=== PATIENT | female | born 1970 | race Caucasian/White ===

== ENCOUNTER 2020-07-21 08:06 | Outpatient (CLI) | payer OTHER, SELFPAY ==
--- NOTE | ~2020-07-21 | MM_ITS ---
EXAMINATION: MM screening [facility] BI w sandy HISTORY: Screening TECHNIQUE: Craniocaudal and mediolateral oblique 3-D tomosynthesis images were obtained and synthetic 2-D images were generated. CAD analysis was submitted and interpreted. COMPARISON: Comparison to multiple prior studies sequentially, with oldest reviewed study dated 06/19. BREAST PARENCHYMAL COMPOSITION: The breasts are heterogenously dense, which may obscure small masses. FINDINGS: There is no evidence of suspicious mass, calcification, or architectural distortion to sugg est malignancy in either breast. There has been no suspicious interval change. IMPRESSION: 1. No mammographic evidence of malignancy. 2. Recommend routine screening mammography in one year. BI-RADS Category 1: Negative Reviewed, dictated and finalized at location A. CEWOMAN
== END 2020-07-21 08:07 | disposition home or self-care (01) ==
LOC: CHSIMG 08:07
PROVIDERS: PCP Internal Medicine; Visit Provider Obstetrics & Gynecology
DX: Z12.31 Encounter for screening mammogram for malignant neoplasm of breast (principal)
CPT/HCPCS: 77063; 77067

== ENCOUNTER 2021-05-10 10:29 | Outpatient (CLI) | payer OTHER, SELFPAY ==
--- NOTE | ~2021-05-10 | US_ITS ---
EXAMINATION: US soft tissue head and neck EXAM DATE: 05/10/2021 10:56 INDICATION: HX of malignant neoplasm of thyroid. TECHNIQUE: Multiple grayscale and Doppler images of the thyroid were obtained (by a technologist who performed the scan) and subsequently reviewed. Individual nodules and recommendations may be reporte d in accordance with TI-RADS system as designated by the 2017 ACR White Paper TI-RADS committee. The re is no prior study for comparison. FINDINGS: Right-sided thyroidectomy bed is unremarkable. Several small internal jugular chain lymph nodes bilat erally. Along the left side of the neck, lateral to the internal jugular vein and thyroidectomy bed there is region of tissue measuring about 9 x 6 x 10 mm, nonspecific. No evidence of internal vascularity. Thi s could be a lipoma but other histology not excludable. IMPRESSION: Small focal appearing region of nonspecific soft tissue, could be lipoma. Less likely lym ph node or other mass. Recommend neck CT with contrast. Reviewed, dictated and finalized at location A. IMPRESSION: Small focal appearing region of nonspecific soft tissue, could be l ipoma. Less likely lymph node or other mass. Recommend neck CT with contrast.
== END 2021-05-10 10:30 | disposition home or self-care (01) ==
PROVIDERS: PCP Internal Medicine; Visit Provider Internal Medicine Endocrinology, Diabetes & Metabolism
DX: Z85.850 Personal history of malignant neoplasm of thyroid (principal)
CPT/HCPCS: 76536

== ENCOUNTER → 2021-07-07 08:27 | Outpatient (CLI) | payer OTHER, SELFPAY ==
--- NOTE | ~2021-07-07 | CT_ITS ---
EXAMINATION: CT soft tissue neck w con DATE: 07/07/2021 09:00 INDICATION: Neck mass. TECHNIQUE: Computed tomography (CT) of the neck was performed with 75 mL Omnipaque-350 intravenous co ntrast. Automated exposure control and iterative reconstruction technique were employed. The dose-genoveva gth product was 385.79 mGy-cm. COMPARISON: Ultrasound 05/10/2021 FINDINGS: There are changes of thyroidectomy. There are no pathologically enlarged lymph nodes. There is no visible plaque in the proximal internal carotid arteries. There is moderate cervical spondylos is. IMPRESSION: 1. No abnormal neck mass or lymphadenopathy. Reviewed, dictated and finalized at location A.
[2021-07-07 08:47] LABS: Estimated Glomerular Filt Rate 59
== END ==
PROVIDERS: PCP Internal Medicine; Visit Provider Internal Medicine Endocrinology, Diabetes & Metabolism
DX: R22.1 Localized swelling, mass and lump, neck (principal); Z85.850 Personal history of malignant neoplasm of thyroid
CPT/HCPCS: 70491; Q9967

== ENCOUNTER 2021-07-23 08:02 | Outpatient (CLI) | payer OTHER, SELFPAY ==
--- NOTE | ~2021-07-23 | MM_ITS ---
EXAMINATION: MM screening [facility] BI w sandy HISTORY: Screening TECHNIQUE: Craniocaudal and mediolateral oblique 3-D tomosynthesis images were obtained and synthetic 2-D images were generated. CAD analysis was submitted and interpreted. COMPARISON: Comparison to multiple prior studies sequentially, with oldest reviewed study dated 10/16. BREAST PARENCHYMAL COMPOSITION: There are scattered areas of fibroglandular density. FINDINGS: There is no evidence of suspicious mass, calcification, or architectural distortion to sugg est malignancy in either breast. There has been no suspicious interval change. IMPRESSION: 1. No mammographic evidence of malignancy. 2. Recommend routine screening mammography in one year. BI-RADS Category 1: Negative Reviewed, dictated and finalized at location A.
== END 2021-07-23 08:03 | disposition home or self-care (01) ==
LOC: CHSIMG 08:04
PROVIDERS: PCP Internal Medicine; Visit Provider Obstetrics & Gynecology Gynecology
DX: Z12.31 Encounter for screening mammogram for malignant neoplasm of breast (principal)
CPT/HCPCS: 77063; 77067

== ENCOUNTER 2021-08-20 13:00 | Outpatient (CLI) | payer OTHER, SELFPAY ==
[2021-08-20 13:52] LABS: SARS-CoV-2 RNA PCR Negative (Negative)
== END 2021-08-20 13:01 | disposition home or self-care (01) ==
LOC: CHSLAB 13:03
PROVIDERS: PCP Internal Medicine; Visit Provider Internal Medicine
DX: Z20.822 Contact with and (suspected) exposure to COVID-19 (principal)
CPT/HCPCS: C9803; U0003; U0005

== ENCOUNTER 2022-03-07 03:02 | Day surgery (SDC) | payer OTHER, SELFPAY ==
[2022-02-17 11:25] VITALS: BMI 34.4
--- NOTE | 2022-03-07 06:37 | WPDANESEPPF ---
Anes - Initial Pre Proc Eval Procedure: Operation Date: 03/07/22 08:30 Proposed Procedures p Screening Colonoscopy - Shailesh Salinas MD Date/Time: 03/07/22 06:37 Surgeon: Shailesh Salinas MD Pre Op Diagnosis: neoplasm screening Patient Data Age: 51 Gender: F Height: 1.63 m Weight: 90.9 kg Allergies Allergy/AdvReac Type Severity Reaction Status Date / Time No Known Allergies Allergy Mild Verified 03/07/22 07:50 Home Medications Medication Instructions Recorded Confirmed Type atenolol 100 mg tablet 100 mg PO DAILY 01/31/20 02/17/22 History blood-glucose meter (OneTouch #1 ea 02/04/20 11/03/21 Rx Verio Meter) irbesartan 150 mg tablet 150 mg PO DAILY 08/10/20 02/17/22 History lancets 33 gauge (OneTouch Delica #200 ea 09/15/20 11/03/21 Rx Lancets) blood sugar diagnostic (OneTouch #100 ea 05/11/21 11/03/21 Rx Verio test strips) levothyroxine 200 mcg tablet 200 mcg PO QAM 90 days #90 tabs 11/03/21 02/17/22 Rx (Synthroid) semaglutide 1 mg/dose (4 mg/3 mL) 1 mg (0.75 mL) subcut WEEKLY 90 01/13/22 02/17/22 Rx subcutaneous pen injector (Ozempic) days #9 mL atorvastatin 10 mg tablet See Rx Instructions .Route 03/07/22 Rx .COMPLEX #90 tabs Patient hx anesthesia problems: none Family hx anesthesia problems: none Results Review: All pre-operative results and documents have been reviewed as part of the pre-operative evaluation. [facility] Past Medical History Medical History (Updated 03/07/22 @ 08:18 by Shailesh Salinas MD) Anemia BMI greater than 30 Cancer Colon cancer screening High blood pressure Hypothyroidism, acquired Type 2 diabetes mellitus with hyperglycemia, without long-term current use of insulin Family History Family History Other Diabetes mellitus Family history of congestive heart failure Family history of glaucoma Family history of hearing loss Family history of malignant neoplasm Family history of osteoporosis Social History Social History Smoking status: Never smoker Alcohol intake: current Living arrangements: with family Spiritual care concerns: No Anes - Eval Final PreProcedure Day of Procedure 03/07/22 06:37 Patient weight: obese Heart: regular rate and rhythm Lungs: clear to auscultation Airway: Mallampati scale class II Neurological: alert and oriented Last oral intake: >/= 8 hours ASA classification: III Emergent: no Anesthetic plan: proceed Anesthesia type and monitoring: general GIVS and standard monitoring Results Review: All pre-operative results and documents have been reviewed as part of the pre-operative evaluation. Informed Consent: The patient's anesthetic plan and its attendant risks and benefits were discussed with the patient/family/POA. Questions were solicited and answers provided to the satisfaction of the patient/family/POA.
[2022-03-07 07:52] VITALS: BP 112/76; PULSE 84; RESP 18; TEMP 36.3; O2SAT 100
[2022-03-07] MEDS: LACTATED RINGERS 1,000 ML 150 ML IV CONT (08:07)
[2022-03-07 08:08] LABS: Glucose Point of Care 121 mg/dl (65-105)
--- NOTE | 2022-03-07 08:18 | PM.HPGS ---
History of Present Illness History of Present Illness Consent: Risks, benefits, and alternatives have been discussed and questions answered. Patient agrees to proceed with procedure. Chief complaint: neoplasm screening Narrative: Ave Higuera is a 51 year old female here for first screening colonoscopy Review of Systems Constitutional: Constitutional: Denies headache(s) and Denies weakness Eyes: Eyes: Denies blurry vision ENT: Reports Normal hearing present, Denies headache(s) and Denies neck pain Cardiovascular: Cardiovascular: Denies chest pain and Denies dyspnea Respiratory: Respiratory: Denies dyspnea Gastrointestinal: Gastrointestinal: Reports no additional gastrointestinal complaints Genitourinary: Genitourinary: Denies dysuria Musculoskeletal: Musculoskeletal: Denies neck pain Integumentary/Breasts: Skin/Breast: Denies dry skin Neurologic: Reports Normal hearing present, Denies headache(s) and Denies weakness Psychiatric: Psychiatric: Denies anxiety Endocrine: Endocrine: Denies change in body appearance Hematologic/Lymphatic: Hematologic/Lymphatic: Denies easy bleeding Allergic/Immunologic: Allergic/Immunologic: Denies urticaria PMFSH Past Medical History Medical History (Updated 03/07/22 @ 08:18 by Shailesh Salinas MD) Anemia BMI greater than 30 Cancer Colon cancer screening High blood pressure Hypothyroidism, acquired Type 2 diabetes mellitus with hyperglycemia, without long-term current use of insulin Family History Family History Other Diabetes mellitus Family history of congestive heart failure Family history of glaucoma Family history of hearing loss Family history of malignant neoplasm Family history of osteoporosis Social History Social History Smoking status: Never smoker Alcohol intake: current Living arrangements: with family Spiritual care concerns: No Meds Home Medications and Allergies Home Medications Medication Instructions Recorded Confirmed Type atenolol 100 mg tablet 100 mg PO DAILY 01/31/20 02/17/22 History blood-glucose meter (OneTouch #1 ea 02/04/20 11/03/21 Rx Verio Meter) irbesartan 150 mg tablet 150 mg PO DAILY 08/10/20 02/17/22 History lancets 33 gauge (OneTouch Delica #200 ea 09/15/20 11/03/21 Rx Lancets) blood sugar diagnostic (OneTouch #100 ea 05/11/21 11/03/21 Rx Verio test strips) levothyroxine 200 mcg tablet 200 mcg PO QAM 90 days #90 tabs 11/03/21 02/17/22 Rx (Synthroid) semaglutide 1 mg/dose (4 mg/3 mL) 1 mg (0.75 mL) subcut WEEKLY 90 01/13/22 02/17/22 Rx subcutaneous pen injector (Ozempic) days #9 mL atorvastatin 10 mg tablet See Rx Instructions .Route 03/07/22 Rx .COMPLEX #90 tabs Allergies Allergy/AdvReac Type Severity Reaction Status Date / Time No Known Allergies Allergy Mild Verified 03/07/22 07:50 Vital Signs Vital Signs - 24 hr 03/07/22 07:52 Temperature 97.4 F L Pulse Rate 84 Respiratory Rate 18 Blood Pressure 112/76 Pulse Oximetry 100 Oxygen Delivery Room Air Exam Const: General: comfortable and no acute distress HENMT: General nose exam: Normal nares present Eyes: General: appearance normal, both eyes and all related structures Neck: Neck: no JVD Resp: Auscultation: clear to auscultation bilaterally Cardio: Rate: regular rate Rhythm: regular rhythm GI: Inspection: non-distended GI Palp: Yes Soft to palpation Skin: General skin exam: normal color Neuro: General: gait normal Speech: normal speech Extrem: General: normal to inspection Psych: Mental Status: mental status grossly normal Assessment and Plan Assessment and plan (1) Colon cancer screening: Code(s): Z12.11 - Encounter for screening for malignant neoplasm of colon Status: Acute Assessment and Plan: colonoscopy
[2022-03-07 08:43] VITALS: BP 94/56; PULSE 84; RESP 20; O2SAT 99
[2022-03-07 08:53] VITALS: BP 100/53; PULSE 86; RESP 20; O2SAT 100
[2022-03-07 09:03] VITALS: BP 126/67; PULSE 82; RESP 20; O2SAT 100
== END 2022-03-07 09:23 | disposition home or self-care (01) ==
PROVIDERS: PCP Internal Medicine; Visit Provider Internal Medicine Gastroenterology
PROC: 0DJD8ZZ Inspection of Lower Intestinal Tract, Via Natural or Artificial Opening Endoscopic (ICD-10-PCS; CPT 45378; principal; 2022-03-07 08:30)
DX: Z12.11 Encounter for screening for malignant neoplasm of colon (principal); K64.8 Other hemorrhoids; D64.9 Anemia, unspecified; E11.9 Type 2 diabetes mellitus without complications; E66.9 Obesity, unspecified; Z68.34 Body mass index [BMI] 34.0-34.9, adult
CPT/HCPCS: 45378; 82948; J2704; J7120

== ENCOUNTER 2022-09-15 12:21 | Outpatient (CLI) | payer OTHER, SELFPAY ==
--- NOTE | ~2022-09-15 | MM_ITS ---
EXAMINATION: MM screening [facility] BI w sandy HISTORY: Screening mammogram TECHNIQUE: Craniocaudal and mediolateral oblique 3-D tomosynthesis images were obtained and synthetic 2-D images were generated. CAD analysis was submitted and interpreted. COMPARISON: 07/23/2021, 07/21/2020, 06/24/2019 bilateral screening mammogram examinations BREAST PARENCHYMAL COMPOSITION: There are scattered areas of fibroglandular density. FINDINGS: There is no evidence of suspicious mass, calcification, or architectural distortion to sugg est malignancy in either breast. There has been no suspicious interval change. IMPRESSION: 1. No mammographic evidence of malignancy. 2. Recommend routine screening mammography in one year. BI-RADS Category 1: Negative Reviewed, dictated and finalized at location A. ULATOR TENDER
== END 2022-09-15 12:22 | disposition home or self-care (01) ==
LOC: CHSIMG 12:22
PROVIDERS: PCP Internal Medicine; Visit Provider Nurse Practitioner Obstetrics & Gynecology
DX: Z12.31 Encounter for screening mammogram for malignant neoplasm of breast (principal)
CPT/HCPCS: 77063; 77067

== ENCOUNTER 2024-09-17 10:45 | Outpatient (CLI) | payer OTHER, SELFPAY ==
--- NOTE | ~2024-09-17 | MM_ITS ---
EXAMINATION: MM screening [facility] BI w sandy HISTORY: Screening mammogram TECHNIQUE: Craniocaudal and mediolateral oblique 3-D tomosynthesis images were obtained and synthetic 2-D images were generated. CAD analysis was submitted and interpreted. COMPARISON: 09/15/2022, 07/23/2021, 07/21/2020 BREAST PARENCHYMAL COMPOSITION:Not Dense. There are scattered areas of fibroglandular density. FINDINGS: No suspicious mass, calcification, or architectural distortion are identified in either riaz ast to suggest malignancy. There has been no suspicious interval change. IMPRESSION: No mammographic evidence of malignancy. Recommend routine screening mammography in one year. BI-RADS Category 1: Negative Reviewed, dictated and finalized at location . [employer]IST
== END 2024-09-17 10:46 | disposition home or self-care (01) ==
PROVIDERS: PCP Obstetrics & Gynecology; Visit Provider Internal Medicine
DX: Z12.31 Encounter for screening mammogram for malignant neoplasm of breast (principal)
CPT/HCPCS: 77063; 77067